=== PATIENT | female | born 1965 | race Caucasian/White ===

== ENCOUNTER 2017-12-28 09:45 | Emergency (ER) | payer MEDICAID ==
[~2017-12-28] VITALS: Ht 297.2 cm; Wt 57.0 kg
[2017-12-28 09:56] VITALS: BP 134/86
[2017-12-28] MEDS ORDERED: CEPH-571 PO (10:39)
== END 2017-12-28 10:47 | disposition home or self-care (01) ==
LOC: ER 09:47
DX: T63.311A Toxic effect of venom of black widow spider, accidental (unintentional), initial encounter (principal); I10 Essential (primary) hypertension; F15.10 Other stimulant abuse, uncomplicated; Z88.0 Allergy status to penicillin; Y92.89 Other specified places as the place of occurrence of the external cause
CPT/HCPCS: 99284

== ENCOUNTER 2018-11-02 18:30 | Emergency (ER) | payer MEDICAID ==
[~2018-11-02] VITALS: Ht 152.4 cm; Wt 59.0 kg
[~2018-11-02 18:30] MED LIST: CEPH-571 PO; ONDA8TAB9 PO
[2018-11-02 18:45] VITALS: BP 144/82
[2018-11-02] MEDS ORDERED: MECL12.584 PO (19:49)
[2018-11-02] MEDS ORDERED: traMADol 50MG tablet PO ONE (20:20)
== END 2018-11-02 20:26 | disposition home or self-care (01) ==
LOC: ER 18:30
DX: S16.1XXA Strain of muscle, fascia and tendon at neck level, initial encounter (principal); R42 Dizziness and giddiness; R11.0 Nausea; I10 Essential (primary) hypertension; F12.90 Cannabis use, unspecified, uncomplicated; F15.90 Other stimulant use, unspecified, uncomplicated; Z88.0 Allergy status to penicillin; Z88.8 Allergy status to other drugs, medicaments and biological substances; Z79.899 Other long term (current) drug therapy; Z86.19 Personal history of other infectious and parasitic diseases; Y08.89XA Assault by other specified means, initial encounter; Y93.89 Activity, other specified; Y92.481 Parking lot as the place of occurrence of the external cause; Y99.8 Other external cause status
CPT/HCPCS: 99283

== ENCOUNTER 2019-10-04 12:29 | Emergency (ER) | payer MEDICAID ==
[~2019-10-04] VITALS: Ht 151.1 cm; Wt 80.0 kg
[~2019-10-04 12:29] MED LIST changes: +MECL-183 PO
[2019-10-04 12:34] VITALS: BP 145/95
[2019-10-04] MEDS ORDERED: TETanus/Pertussis (Acell)/Diphther VAC/PF (Tdap-Adult) 0.5ml syringe IMVAC ONE (13:20)
[2019-10-04] MEDS ORDERED: LIDOcaine 1% W/epiNEPHrine 1:200,000 10ml vial IJ ONE (13:20)
== END 2019-10-04 14:18 | disposition home or self-care (01) ==
LOC: ER 12:30
DX: S91.012A Laceration without foreign body, left ankle, initial encounter (principal); I10 Essential (primary) hypertension; F41.9 Anxiety disorder, unspecified; F31.9 Bipolar disorder, unspecified; F12.90 Cannabis use, unspecified, uncomplicated; F15.90 Other stimulant use, unspecified, uncomplicated; F10.10 Alcohol abuse, uncomplicated; Z86.19 Personal history of other infectious and parasitic diseases; Z88.0 Allergy status to penicillin; Z88.8 Allergy status to other drugs, medicaments and biological substances; Z79.899 Other long term (current) drug therapy; W25.XXXA Contact with sharp glass, initial encounter; Y93.89 Activity, other specified; Y92.89 Other specified places as the place of occurrence of the external cause; Y99.8 Other external cause status; Y90.9 Presence of alcohol in blood, level not specified
CPT/HCPCS: 12001; 90471; 90715; 99283

== ENCOUNTER 2019-10-25 12:38 | Emergency (ER) | payer MEDICAID ==
[~2019-10-25] VITALS: Ht 157.5 cm; Wt 50.0 kg
[2019-10-25 12:50] VITALS: BP 148/97
[2019-10-25] MEDS ORDERED: SULF1TAB49 PO (13:30)
== END 2019-10-25 13:57 | disposition home or self-care (01) ==
LOC: ER 12:39
DX: S91.312D Laceration without foreign body, left foot, subsequent encounter (principal); L03.116 Cellulitis of left lower limb; I10 Essential (primary) hypertension; F41.9 Anxiety disorder, unspecified; F32.9 Major depressive disorder, single episode, unspecified; F12.90 Cannabis use, unspecified, uncomplicated; F15.90 Other stimulant use, unspecified, uncomplicated; Z86.19 Personal history of other infectious and parasitic diseases; Z88.0 Allergy status to penicillin; Z88.8 Allergy status to other drugs, medicaments and biological substances; W20.8XXD Other cause of strike by thrown, projected or falling object, subsequent encounter
CPT/HCPCS: 99283